=== PATIENT | male | born 1985 | race Caucasian/White ===

== ENCOUNTER 2024-09-05 16:25 | Emergency (ER) | payer OTHER, SELFPAY ==
[2024-09-05 16:43] VITALS: BP 123/70; PULSE 78; RESP 20; TEMP 36.4; O2SAT 98; BMI 25.5
[2024-09-05 17:23] LABS: Strep Grp A by PCR Rapid Negative (Negative)
--- NOTE | 2024-09-05 17:32 | ED_ITS ---
HPI - URI/Sore Throat <Ann-Marie Hoskins PA-C - Last Filed: 09/05/24 19:06> General Chief Complaint: Upper Respiratory Symptoms Stated Complaint: Sore Throat Time Seen by Provider: 09/05/24 17:30 Mode of arrival: Ambulatory History of Present Illness HPI Narrative: Mr. Palma is a very pleasant 39-year-old male with no reported past medical history who presents to the emergency department with his and son for evaluation of possible upper respiratory infection. The patient is asymptomatic. However his is having a sore throat and his son is having a fever a cough and a sore throat. He is here to be tested for strep throat along with his family members. He is not experiencing sore throat, fever, cough or any other symptoms or concerns at this time. Review of Systems <Ann-Marie Hoskins PA-C - Last Filed: 09/05/24 19:06> Review of Systems ROS Unobtainable: All systems reviewed & are unremarkable except as noted in HPI and below Patient History <Ann-Marie Hoskins PA-C - Last Filed: 09/05/24 19:06> Social History Smoking Status: Never smoker Smoking Status: Never smoker Exam <Ann-Marie Hoskins PA-C - Last Filed: 09/05/24 19:06> Narrative Exam Narrative: GENERAL: 39 year old patient appears stated age. Well-developed patient, in no acute distress. HEAD: Atraumatic. Normocephalic. EYES: Extraocular motions intact. No scleral icterus. No injection or drainage. ENT: Normal TMs and ear canals bilaterally. Nose without bleeding, purulent drainage. Throat without erythema, tonsillar hypertrophy or exudate. Airway patent. NECK: Trachea midline. Cervical ROM intact. CARDIOVASCULAR: Regular rate and rhythm. RESPIRATORY: ?Nonlabored respirations. ?Speaking in clear, full sentences. ?Clear to auscultation. Breath sounds equal bilaterally. No wheezes, rales, or rhonchi. ? NEURO: AOx3. ?Clear speech. ?Moves all 4 extremities appropriately. SKIN: No rash or erythema of visible areas Initial Vital Signs Initial Vital Signs: Vital Signs Temperature 97.6 F 09/05/24 16:43 Pulse Rate 78 09/05/24 16:43 Respiratory Rate 20 09/05/24 16:43 Blood Pressure 123/70 09/05/24 16:43 Pulse Oximetry 98 09/05/24 16:43 Oxygen Delivery Method Room Air 09/05/24 16:43 <Daniel Tirado MD - Last Filed: 09/05/24 19:44> Initial Vital Signs Initial Vital Signs: Vital Signs Temperature 97.6 F 09/05/24 16:43 Pulse Rate 78 09/05/24 16:43 Respiratory Rate 20 09/05/24 16:43 Blood Pressure 123/70 09/05/24 16:43 Pulse Oximetry 98 09/05/24 16:43 Oxygen Delivery Method Room Air 09/05/24 16:43 Course <Ann-Marie Hoskins PA-C - Last Filed: 09/05/24 19:06> Orders Ordered: ED Orders 09/05/24 16:34 Throat Culture Stat 09/05/24 16:39 Covid-19 + FLU A/B + RSV - PCR Stat Strep Grp A by PCR Rapid Stat Vital Signs Vital signs: Vital Signs - 8 hr 09/05/24 16:43 09/05/24 18:32 Temperature 97.6 F 98.7 F Pulse Rate 78 78 Respiratory Rate 20 16 Blood Pressure 123/70 120/70 Pulse Oximetry 98 99 Oxygen Delivery Method Room Air Room Air <Daniel Tirado MD - Last Filed: 09/05/24 19:44> Orders Ordered: ED Orders 09/05/24 16:34 Throat Culture Stat 09/05/24 16:39 Covid-19 + FLU A/B + RSV - PCR Stat Strep Grp A by PCR Rapid Stat Vital Signs Vital signs: Vital Signs - 8 hr 09/05/24 16:43 09/05/24 18:32 Temperature 97.6 F 98.7 F Pulse Rate 78 78 Respiratory Rate 20 16 Blood Pressure 123/70 120/70 Pulse Oximetry 98 99 Oxygen Delivery Method Room Air Room Air MDM - URI/Sore Throat <Ann-Marie Hoskins PA-C - Last Filed: 09/05/24 19:06> Medical Records Medical records narrative: No records available for review Lab Data Labs: Lab Results 09/05/24 Range/Units 16:39 SARS-CoV-2 (PCR) Negative (Negative) Influenza A (RT-PCR) Flu a negative (NEGATIVE) Influenza B (RT-PCR) Flu b negative (NEGATIVE) RSV (PCR) Negative (Negative) Group A Strep (PCR) Negative (Negative) MDM Narrative Medical decision making narrative: 39-year-old male with no reported past medical history who presents to the emergency department with his and son for evaluation of possible upper respiratory infection. Differential diagnosis includes but is not limited to viral exposure, URI, etc. On exam patient is in no acute distress, nontoxic appearing, physical exam unremarkable, vital signs within normal limits. Viral and strep swabs were ordered and negative for patient and his family. Recommended supportive care. Discussed ED return precautions. He verbalized understanding of all information agree with the plan, he is stable for discharge home. <Daniel Tirado MD - Last Filed: 09/05/24 19:44> Lab Data Labs: Lab Results 09/05/24 Range/Units 16:39 SARS-CoV-2 (PCR) Negative (Negative) Influenza A (RT-PCR) Flu a negative (NEGATIVE) Influenza B (RT-PCR) Flu b negative (NEGATIVE) RSV (PCR) Negative (Negative) Group A Strep (PCR) Negative (Negative) Discharge Plan Departure Patient Disposition: Home Clinical Impression: Exposure to virus Instructions: DI for Viral Syndrome Activity Restrictions/Additional Instructions: Dear Mr. Palma, Today you tested negative for strep throat, COVID, flu a, flu B, RSV. A throat culture has been sent. You will be called if it comes back positive. It is possible that you may or may not develop the same symptoms that you family members have. If you do, please rest, hydrate, use ibuprofen/acetaminophen if needed for pain or fevers. Please follow up with your primary care doctor within the next 2-3 days for ER follow-up. (If you do not have a PCP you can call [phone]. ?to schedule an appointment with an [facility] Primary Care Provider) IF YOU DEVELOP ANY NEW OR WORSENING SYMPTOMS, RETURN TO THE ER! Please read the attached instructions, they highlight more specific treatments and interventions for you at home. Thank you for letting me participate in your care, Ann-Marie Hoskins PA-C Stand Alone Forms: Patient Portal/API/Survey ED Sign-out <Daniel Tirado MD - Last Filed: 09/05/24 19:44> Cosign ED Attending Cosignature Attestation: I was immediately available in the department for consultation. This documentation has been reviewed and I agree with assessment and plan. Supervised by Daniel Tirado MD
[2024-09-05 17:38] LABS: Influenza A - CEPHEID Flu A NEGATIVE (NEGATIVE); Influenza B - CEPHEID Flu B NEGATIVE (NEGATIVE); Respiratory Syncytial Virus Negative (Negative)
[2024-09-05 17:41] LABS: COVID-19 CEPHEID 4-PLEX PCR Negative (Negative)
[2024-09-05 18:32] VITALS: BP 120/70; PULSE 78; RESP 16; TEMP 37.1; O2SAT 99
== END 2024-09-05 18:33 | disposition home or self-care (01) ==
PROVIDERS: Emergency Provider Physician Assistant
DX: Z20.828 Contact with and (suspected) exposure to other viral communicable diseases (principal)
CPT/HCPCS: 0241U; 87070; 87651; 99281; 99282